=== PATIENT | male | born 1995 | race Caucasian/White ===

== ENCOUNTER 2017-07-03 09:43 | Outpatient (CLI) | payer OTHER ==
[2017-07-03] MEDS ORDERED: ALBUTEROL NEB 2.5 MG/3 ML INH ONE (11:00)
== END 2017-07-03 09:44 | disposition home or self-care (01) ==
LOC: RT 09:43
PROVIDERS: ATTEND Family Medicine
DX: Z13.9 Encounter for screening, unspecified (principal)
CPT/HCPCS: 94060; 94729; J7613